=== PATIENT | male | born 1960 | race Caucasian/White ===

== ENCOUNTER 2022-08-13 14:46 | Emergency (ER) | payer BC, OTHER ==
[2022-08-13 15:31] LABS: BASOPHILS PERCENT AUTO 0.3 % (0.0-1.0); EOSINOPHILS PERCENT AUTO 0.2 % (1.0-3.0); HEMATOCRIT 38.2 % (40.0-54.0); HEMOGLOBIN 12.2 g/dL (14.0-18.0); LYMPHOCYTES PERCENT AUTO 7.7 % (20.5-50.1); MEAN CORPUSCULAR HEMOGLOBIN 28.4 pg (27.0-34.0); MEAN CORPUSCULAR HGB CONC 31.9 g/dL (33.0-35.0); MONOCYTES PERCENT AUTO 8.6 % (2-8); NEUTROPHILS PERCENT AUTO 83.2 % (42.2-75.2); PLATELET COUNT,PLT 140 10^3/uL (150-450); RED BLOOD CELL COUNT 4.29 10^6/uL (4.6-6.2); WHITE BLOOD CELL COUNT,WBC 5.7 10^3/uL (5.0-10.0)
[2022-08-13 15:53] LABS: ALBUMIN 2.6 g/dL (3.4-5.0); ANION GAP 14.6 mEq/L (7-13); BILIRUBIN TOTAL 1.1 mg/dL (0.2-1.0); BUN/CREATININE RATIO 13.8 (No establ ref range); CALCIUM 8.2 mg/dL (8.5-10.1); CREATININE 1.09 mg/dL (0.70-1.30); EST CRCL DRUG DOSING (CG) 67.38 mL/min; MAGNESIUM 1.8 mg/dL (1.8-2.4); PHOSPHORUS 2.7 mg/dL (2.6-4.7); POTASSIUM,K 3.6 mmol/L (3.5-5.1); PROTEIN TOTAL,TP 6.9 g/dL (6.4-8.2)
[2022-08-13 15:54] LABS: A/G RATIO 0.6
[2022-08-13 15:55] LABS: LACTIC ACID 2.2 mmol/L (0.4-2.0)
[2022-08-13 15:56] LABS: INR 1.2 (0.9-1.2); PROTHROMBIN TIME 12.7 SEC (9.0-12.0); PTT,PARTIAL THROMBOPLSTIN TIME 29.6 SEC (22.0-34.0)
[2022-08-13] MEDS ORDERED: Albumin Human 25 GM in Premix Bag 1 BAG IV ONE (16:00)
[2022-08-13] MEDS ORDERED: Azithromycin 500 MG in Sodium Chloride 0.9% 250 ML IV ONE (16:00)
[2022-08-13] MEDS ORDERED: cefTRIAXone 2 GM Vial IVPUSH ONE (16:00)
[2022-08-13] MEDS ORDERED: Furosemide 100 MG/10 ML SDV IVPUSH ONE (16:01)
== END 2022-08-13 18:06 | disposition home or self-care (01) ==
LOC: DL.ED 14:46
DX: J90 Pleural effusion, not elsewhere classified (principal); I11.0 Hypertensive heart disease with heart failure; I50.9 Heart failure, unspecified; D50.9 Iron deficiency anemia, unspecified; R91.8 Other nonspecific abnormal finding of lung field; E80.7 Disorder of bilirubin metabolism, unspecified; F17.210 Nicotine dependence, cigarettes, uncomplicated; Z20.822 Contact with and (suspected) exposure to COVID-19; Z79.899 Other long term (current) drug therapy
CPT/HCPCS: 36415; 71045; 80053; 83605; 83735; 83880; 84100; 84484; 85025; 85610; 85730; 86140; 87040; 87635; 93005; 93970; 96365; 96368; 96375; 99285; J0456; J0696; J1940; J7050; P9047; U0002

== ENCOUNTER 2024-06-10 07:56 | Day surgery (SDC) | payer BC, OTHER ==
[~2024-06-10 07:56] MED LIST: Acetaminophen 325 MG Tab PO PRN; Acetaminophen/Codeine 300-30 MG Tab PO PRN; Cataract Ophth Solution EYELF ONE; Moxifloxacin 0.5% Ophth Soln 3 ML Bottle EYELF ONE; Ondansetron 4 MG/2 ML SDV IVPUSH PRN; Phenylephrine 10% Ophth Soln 5 ML Bot EYELF ONE; Povidone-Iodine 5% Sterile Ophth Soln 30 ML Bottle EYELF ONE; Proparacaine 0.5% Ophth Soln 15 ML Bottle EYELF ONE; Timolol Maleate 0.5% Ophth Soln 5 ML Bottle EYELF ONE; Tropicamide 1% Ophth Soln 15 ML Bottle EYELF ONE
[2024-06-10] MEDS: Proparacaine 0.5% Ophth Soln 15 ML Bottle EYELF ONE ×2 (08:20→09:37)
[2024-06-10] MEDS: Moxifloxacin 0.5% Ophth Soln 3 ML Bottle EYELF ONE (08:32)
[2024-06-10] MEDS: Povidone-Iodine 5% Sterile Ophth Soln 30 ML Bottle EYELF ONE ×2 (08:33→09:38)
[2024-06-10] MEDS: Tropicamide 1% Ophth Soln 15 ML Bottle EYELF ONE (08:37)
[2024-06-10] MEDS: Phenylephrine 10% Ophth Soln 5 ML Bot EYELF ONE (08:37)
[2024-06-10] MEDS: Cataract Ophth Solution EYELF ONE (08:38)
[2024-06-10] MEDS: Timolol Maleate 0.5% Ophth Soln 5 ML Bottle EYELF ONE (08:38)
[2024-06-10] MEDS: Sodium Chloride 0.9% 10 ML Syringe FLUSH PRN (08:41)
[2024-06-10] MEDS: Apraclonidine 0.5% Ophth Soln 5 ML Bot EYELF ONE (09:39)
[2024-06-10] MEDS: Diclofenac Sodium 0.1% Ophth Soln 5 ML Bottle EYELF ONE (09:40)
[2024-06-10] MEDS: Dexamethasone/Neomycin/Polymyxin B Ophth Oint 3.5 GM Tube EYELF ONE (09:40)
[2024-06-10] MEDS: Lidocaine 1% 30 ML SDV ONE (09:41)
[2024-06-10] MEDS: VANCOmycin 500 MG SDV EYELF ONE (09:42)
== END 2024-06-10 10:46 | disposition home or self-care (01) ==
LOC: DL.SDS 07:56
PROVIDERS: ATTEND Ophthalmology
DX: E11.36 Type 2 diabetes mellitus with diabetic cataract (principal); H25.812 Combined forms of age-related cataract, left eye; H40.1122 Primary open-angle glaucoma, left eye, moderate stage; I10 Essential (primary) hypertension; E78.5 Hyperlipidemia, unspecified; E66.9 Obesity, unspecified; F17.210 Nicotine dependence, cigarettes, uncomplicated
CPT/HCPCS: A9270-GY; J3370; J3490